=== PATIENT | male | born 1950 | race Caucasian/White ===

== ENCOUNTER 2017-08-26 12:15 | Day surgery (SDC) | payer OTHER, MEDICARE ==
--- NOTE | 2017-08-26 13:01 | PDGENHP ---
History & Physical Chief Complaint: screening History of Present Illness: 67 year old male presents for screening colonoscopy. Pertinent Past, Social, Family History: SoHx: + alc. From [place]. PMHx: OSMAR, HTN. FaMHx: No CRC Relevant Physical Exam: HEENT: anicteric. CV: RRR +s1s2. Lungs: CTAB. Abd: soft, nt, + bs Cardiorespiratory Assessment: ASA 3
[2017-08-26] MEDS ORDERED: LIDOCAINE 1% 2 ML INJ ONE (13:02)
[2017-08-26] MEDS ORDERED: LR 1,000 ML IV ONE (13:03)
--- NOTE | 2017-08-26 13:07 | PDANEPAE ---
ANE History of Present Illness 67 yo for colonoscopy ANE Past Medical History - Cardiovascular History Hx Hypertension: Yes Hx Coronary Artery / Peripheral Vascular Disease: Yes - Pulmonary History Hx Sleep Apnea: Yes ANE Review of Systems Review of Systems: - Exercise capacity METS (RN): 3 METS ANE Patient History - Allergies Allergies/Adverse Reactions: No Known Allergies Allergy (Unverified 08/26/17 12:42) - Home Medications Home medications: home medication list seen and reviewed Home Medications: Atenolol 25 mg 08/26/17 [Last Taken 08/25/17] Atorvastatin Calcium 40 mg 08/26/17 [Last Taken 08/25/17] Lisinopril 10 mg 08/26/17 [Last Taken 08/25/17] - NPO status NPO Status: no food or drink >8 hours NPO Since - Liquids (Date): 08/26/17 NPO Since - Liquids (Time): 05:30 NPO Since - Solids (Date): 08/25/17 NPO Since - Solids (Time): 09:00 - Anes Hx Anes Hx: no prior problems ANE Labs/Vital Signs - Vital Signs Blood Pressure: 154/85 Heart Rate: 48 Respiratory Rate: 14 O2 Sat (%): 95 Height: 5 ft 7 in Weight: 102.965 kg ANE Physical Exam - Airway Neck exam: FROM Mallampati Score: Class 2 ANE Anesthesia Plan Anesthesia Plan: MAC
[2017-08-26] MEDS ORDERED: PROPOFOL/EMULSION 500 MG/50 ML BOTTLE IV ONE (13:08)
[2017-08-26] MEDS ORDERED: LIDOCAINE 1% 2 ML INJ ID PRN (13:18)
[2017-08-26] MEDS ORDERED: NALOXONE HCL 0.4 MG/ML INJ IVP PRN (13:20)
[2017-08-26] MEDS ORDERED: fentaNYL 100 MCG/2 ML INJ IVP PRN (13:20)
--- NOTE | 2017-08-26 13:42 | GIREPORT ---
[facility] - Endoscopy Department Patient Name: Dereck Vee Procedure Date: 08/26/2017 12:51 PM Patient Type: Outpatient Attending MD/ ER Physician: Los Hernandes MD Procedure: Colonoscopy Indications: Screening for colorectal malignant neoplasm Patient Profile: 67 year old male presents for screening colonoscopy. Providers: Los eHrnandes MD Medicines: Monitored Anesthesia Care Complications: No immediate complications. Estimated blood loss: Minimal. Description of Procedure: After obtaining informed consent, the scope was passed under direct vis ion. Throughout the procedure, the patient's blood pressure, pulse, and oxyg en saturations were monitored continuously. The Colonoscope with irrigatio n channel was introduced through the anus and advanced to the cecum, identified by appendiceal orifice and ileocecal valve. The colonoscopy was performed without difficulty. The patient tolerated the procedure well. The quality of the bowel preparation was good. The ileocecal valve, appendi ceal orifice, and rectum were photographed. Findings: The perianal exam findings include non-thrombosed internal hemorrhoids. Many diverticula were found in the sigmoid colon and descending colon. A 5 mm polyp was found in the cecum. The polyp was sessile. The polyp w as removed with a cold snare. Resection and retrieval were complete. Estimated Blood Loss: Estimated blood loss was minimal. Post Op Diagnosis: - Non-thrombosed internal hemorrhoids found on perianal exam. - Diverticulosis in the sigmoid colon and in the descending colon. - One 5 mm polyp in the cecum, removed with a cold snare. Resected and retrieved. Recommendation: - Discharge patient to home (with escort). - Resume previous diet. - Continue present medications. - Repeat colonoscopy in 5 years for surveillance. - Await pathology results. -Thank you for allowing me to participate in the care of your patient. Attending Participation: I personally performed the entire procedure. Los Hernandes MD Los Hernandes MD 08/26/2017 1:42:08 PM This report has been signed electronicallyLos Hernandes MD Number of Addenda: 0 Note Initiated On: 08/26/2017 12:51 PM Total Procedure Duration Time 0 hours 21 minutes 48 seconds [email or web address]
--- NOTE | 2017-08-26 13:49 | POSTANESTH ---
Post Anesthetic Evaluation Cardiovascular Status: Normal, Stable Respiratory Status: Normal, Stable Level of Consciousness/Mental Status: Can Participate in Eval Pain Control: Adequate, Prn Tx Ordered Nausea/Vomiting Control: Adequate, Prn Tx Ordered Complications Possibly Related to Anesthesia: None Noted
[2017-08-26 14:43] VITALS: BP 152/68; RESP 18; TEMP 208.9
[2017-08-26 14:45] VITALS: PULSE 56; O2SAT 97
== END 2017-08-26 14:53 | disposition home or self-care (01) ==
LOC: FSGY 12:15
PROVIDERS: ATTEND Internal Medicine Gastroenterology
DX: Z12.11 Encounter for screening for malignant neoplasm of colon (principal); D12.0 Benign neoplasm of cecum; K57.30 Diverticulosis of large intestine without perforation or abscess without bleeding; G47.33 Obstructive sleep apnea (adult) (pediatric); I10 Essential (primary) hypertension
CPT/HCPCS: J2704

== ENCOUNTER → 2017-09-16 | Outpatient (CLI) | payer OTHER, MEDICARE ==
[~2017-09-16] MED LIST: IOPAMIDOL (ISOVUE-300) 100 ML BTL ONE
== END ==
LOC: CIMAGING 09:03
PROVIDERS: ATTEND Specialist
DX: N20.0 Calculus of kidney (principal); K76.9 Liver disease, unspecified; R91.1 Solitary pulmonary nodule; N32.89 Other specified disorders of bladder; K57.90 Diverticulosis of intestine, part unspecified, without perforation or abscess without bleeding; Z87.442 Personal history of urinary calculi
CPT/HCPCS: 74178; Q9967

== ENCOUNTER → 2017-09-26 | Outpatient (CLI) | payer OTHER, MEDICARE ==
[~2017-09-26] MED LIST changes: +GADOBUTROL 10 ML VIAL IVP ONE; -IOPAMIDOL (ISOVUE-300) 100 ML BTL ONE
== END ==
LOC: FIMAGING 06:52
PROVIDERS: ATTEND Specialist
DX: D18.03 Hemangioma of intra-abdominal structures (principal); D35.00 Benign neoplasm of unspecified adrenal gland
CPT/HCPCS: 74183; A9585

== ENCOUNTER 2017-11-28 06:55 | Observation (INO) | payer OTHER, MEDICARE ==
--- NOTE | 2017-11-28 06:54 | PDHPUP ---
History & Physical Update H&P update statement: This history and physical update is based on an assessment of the patient which was completed after admission or registration (within 24 hours), but prior to the surgery/procedure. H&P update: H&P reviewed & patient examined, no change in patient's condition since H&P completed
[~2017-11-28 06:55] MED LIST changes: -GADOBUTROL 10 ML VIAL IVP ONE; +ceFAZolin 2 GM/SWFI 2 GM/20 ML SYR IVP ONE
[2017-11-28] MEDS ORDERED: LIDOCAINE 2% JELLY 20 ML (UROJECT) ONE (07:10)
--- NOTE | 2017-11-28 07:18 | GHP ---
[f rep st] PREOP HISTORY AND PHYSICAL ADMISSION DIAGNOSIS: Benign prostatic hypertrophy with urinary obstruction. HISTORY OF PRESENT ILLNESS: This is a 67-year-old gentleman who was referred by Dr. Pete because of symptomatic BPH. He has had an AUA score total of 17, quality of life of 3, and he had CAT scan that showed BPH, bladder wall thickening, diverticulosis without itis, and cystoscopy had noted prostatomegaly with obstruction. Urodynamics confirmed this finding. He is admitted for TURP. Options of treatment have been discussed. Written and verbal consent were obtained. PAST MEDICAL HISTORY: Atherosclerotic vascular disease, hepatic hemangioma, heart disease, hypercholesterolemia, and lower urinary tract symptoms. PAST SURGICAL HISTORY: Back, cystoscopy, knee surgery, and urodynamics. MEDICATIONS: Aspirin, atenolol, atorvastatin. ALLERGIES: None. FAMILY HISTORY: Heart disease, hypertension, liver cancer. SOCIAL HISTORY: Alcohol: Moderate consumption. Tobacco: Never. REVIEW OF SYSTEMS: Negative cardiac, respiratory, GI, and endocrine. : Nocturia, frequency, and urinary obstruction. PHYSICAL EXAM: VITAL SIGNS: On admission stable. Blood pressure 129/76. HEAD , EARS, EYES, NOSE, AND THROAT: Normal. CHEST: Clear. HEART: Regular rate and rhythm. ABDOMEN: Normal. No organomegaly, rebound, or guarding. LOWER EXTREMITIES: Normal. PLAN: He is admitted for a TURP. Copy requested to: Dr. Pete /[id number]/MODL MTDD
[2017-11-28] MEDS ORDERED: fentaNYL 100 MCG/2 ML INJ ONE (08:36)
[2017-11-28] MEDS ORDERED: PROPOFOL/EMULSION 500 MG/50 ML BOTTLE IV ONE (08:36)
[2017-11-28] MEDS ORDERED: MIDAZOLAM 2 MG/2 ML VIAL ONE (08:36)
[2017-11-28] MEDS ORDERED: ONDANSETRON 4 MG/2 ML VIAL ONE (09:15)
[2017-11-28] MEDS ORDERED: LIDOCAINE 2% 5 ML SDV ONE (09:15)
[2017-11-28] MEDS ORDERED: RANITIDINE 50 MG/2 ML VIAL ONE (09:15)
[2017-11-28] MEDS ORDERED: METOCLOPRAMIDE 10 MG/2 ML VIAL ONE (09:15)
[2017-11-28] MEDS ORDERED: DEXAMETHASONE 4 MG/ML VIAL ONE (09:15)
[2017-11-28] MEDS ORDERED: KETOROLAC 30 MG/1 ML SDV ONE (09:15)
[2017-11-28] MEDS ORDERED: OPIUM/BELLADONNA ALKALO SUPP PR PRN (10:36)
--- NOTE | 2017-11-28 10:36 | POSTOPPROG ---
Post Op Note Date of Operation: 11/28/17 Surgeon: Buddy Harp Anesthesiologist: Herb Anesthesia: GET(General Endotracheal), LMA Pre-op Diagnosis: bph Procedure: turp Inf/Abcess present in the surg proc area at time of surgery?: No EBL: 50-100 Drains: Other (kaur) Specimen(s): prostate sent, dictated
[2017-11-28] MEDS ORDERED: morphINE PCA 30 MG/30 ML PCA IV PRN (10:38)
[2017-11-28] MEDS ORDERED: NALOXONE HCL 0.4 MG/ML INJ IVP PRN ×2 (10:38→11:03)
[2017-11-28] MEDS ORDERED: D5W LR 1,000 ML IV SCH (10:45)
[2017-11-28] MEDS ORDERED: LR 500 ML IV PRN (11:03)
[2017-11-28] MEDS ORDERED: METOCLOPRAMIDE 10 MG/2 ML VIAL IVP PRN (11:03)
[2017-11-28] MEDS ORDERED: ONDANSETRON 4 MG/2 ML VIAL IVP PRN (11:03)
[2017-11-28] MEDS ORDERED: fentaNYL 100 MCG/2 ML INJ IVP PRN (11:03)
--- NOTE | 2017-11-28 11:03 | PDANEPAE ---
ANE Past Medical History - Cardiovascular History Hx Hypertension: Yes Hx Arrhythmias: No Hx Chest Pain: No Hx Coronary Artery / Peripheral Vascular Disease: Yes Hx CHF / Valvular Disease: No Hx Palpitations: No Cardiovascular History Comment: HYPERLIPIDEMIA - Pulmonary History Hx COPD: No Hx Asthma/Reactive Airway Disease: No Hx Recent Upper Respiratory Infection: No Hx Oxygen in Use at Home: No Hx Sleep Apnea: Yes Sleep Apnea Screening Result - Last Documented: Positive - Neurologic History Hx Cerebrovascular Accident: No Hx Seizures: No Hx Dementia: No - Endocrine History Hx Diabetes: No Endocrine History Comment: PRE DIAB - Renal History Hx Renal Disorders: No Renal History Comment: KIDNEY STONES IN PAST - Liver History Hx Hepatic Disorders: No - Neurological & Psychiatric Hx Hx Neurological and Psychiatric Disorders: No - Cancer History Hx Cancer: No - Congenital Disorder History Hx Congenital Disorders: No - GI History Hx Gastrointestinal Disorders: No - Other Health History Other Health History: NEG - Chronic Pain History Chronic Pain: Yes (KNEE, THIGH, BACK) - Surgical History Prior Surgeries: R TKA. LUMBAR FUSION L4-5. KNEE SCOPES ANE Review of Systems Review of Systems: - Exercise capacity METS (RN): 5 METS ANE Patient History - Allergies Allergies/Adverse Reactions: No Known Allergies Allergy (Unverified 08/26/17 12:42) - Home Medications Home Medications: Atenolol [Tenormin 25 mg (*)] 25 mg PO DAILY #0 08/26/17 [Last Taken 11/27/17] Atorvastatin Calcium [Lipitor 40 mg (*)] 40 mg PO DAILY #0 08/26/17 [Last Taken 11/27/17] Lisinopril [Zestril 10 mg (*)] 10 mg PO DAILY #0 08/26/17 [Last Taken 11/27/17] Aspirin [Aspirin 325 mg (*)] 325 mg PO DAILY 11/06/17 [Last Taken 11/22/17] Cholecalciferol Vit D3 [Vitamin D3 (*)] 1,000 units PO DAILY 11/06/17 [Last Taken 11/22/17] Glucosamine/Chondroitin [Glucosamine/Chondroitin (*)] 1 each PO DAILY 11/06/17 [ Last Taken 11/22/17] Herbals/Supplements -Info Only 1 ea PO DAILY 11/06/17 [Last Taken 11/22/17] [place]-3 Fatty Acids [Fish Oil 1000 mg (*)] 1,000 mg PO DAILY 11/06/17 [Last Taken 11/22/17] - NPO status NPO Since - Liquids (Date): 11/27/17 NPO Since - Liquids (Time): 19:00 NPO Since - Solids (Date): 11/27/17 NPO Since - Solids (Time): 19:00 - Smoking Hx Smoking Status: Never smoked - Family Anes Hx Family Hx Anesthesia Complications: NEG ANE Labs/Vital Signs - Vital Signs Blood Pressure: 160/83 Heart Rate: 56 Respiratory Rate: 16 O2 Sat (%): 94 Height: 168.91 cm Weight: 102.965 kg ANE Physical Exam - Airway Neck exam: FROM, short neck Mallampati Score: Class 2 Mouth exam: normal dental/mouth exam, poor dentition - Pulmonary Pulmonary: no respiratory distress, no rales or rhonchi, clear to auscultation - Cardiovascular Cardiovascular: regular rate and rhythym, no murmur, rub, or gallop - ASA Status ASA Status: III ANE Anesthesia Plan Anesthesia Plan: GA w LMA
--- NOTE | 2017-11-28 11:04 | POSTANESTH ---
Post Anesthetic Evaluation Cardiovascular Status: Normal, Stable, Similar to Pre-Op Cond Respiratory Status: Normal, Stable, Similar to Pre-op Cond. Level of Consciousness/Mental Status: Can Participate in Eval Pain Control: Adequate, Prn Tx Ordered Nausea/Vomiting Control: Adequate, Prn Tx Ordered Complications Possibly Related to Anesthesia: None Noted
[2017-11-28] MEDS ORDERED: OPIUM/BELLADONNA ALKALO SUPP PR ONE (11:48)
--- NOTE | 2017-11-28 14:15 | GOP ---
[f rep st] OPERATIVE REPORT DATE OF OPERATION: 11/28/2017 SURGEON: Buddy Harp MD ANESTHESIA: General anesthesia. ANESTHESIOLOGIST: Romy Estevez MD. PREOPERATIVE DIAGNOSIS: Benign prostatic hypertrophy with urinary obstruction. POSTOPERATIVE DIAGNOSIS: Benign prostatic hypertrophy with urinary obstruction. PROCEDURE PERFORMED: Transurethral resection of the prostate, bipolar. FINDINGS: BPH with obst SPECIMENS: Sent to pathology. ESTIMATED BLOOD LOSS: Less than 100. DESCRIPTION OF PROCEDURE: After undergoing appropriate anesthesia, being prepped and draped in normal sterile fashion in the dorsal lithotomy position, he had meatal stenosis that was dilated to a 22-Lao. I was able to pass the resectoscope under direct vision of the bladder. He had an intravesical lobe of the prostate, lateral lobar hypertrophy. The TUR was begun with the bipolar , taking down the intravesical lobe and the right lateral lobe and right portion of the posterior lobe, left lateral lobe, and left portion of the posterior lobe resected. Bladder was Ellik'd free of all chips and clots. Visualization revealed no residual chips or clots. Ureteral orifices preserved. External sphincter approximated at the midline symmetrically. Uro- Jet placed in the urethra. A 22 three-way catheter passed in the bladder with a 90 cc balloon inflated, traction placed, and irrigated clear. He will be admitted for postoperative care. /[id number]/MODL MTDD
[2017-11-28] MEDS: HYDROCODONE/APAP 5/325 TAB PO PRN (22:42)
[2017-11-29] MEDS: HYDROCODONE/APAP 5/325 TAB PO PRN (02:06)
--- NOTE | 2017-11-29 08:09 | SOAPPROG ---
SOAP Progress Note Assessment/Plan: Assessment: BPH loc w urin obs/LUTS Acute POD # 1, doing well, remove kaur and if pt voids DC Plan: DC kaur and home if pt voids 11/29/17 16:00 Subjective: doing well Objective: Vital Signs Temp Pulse Resp BP Pulse Ox 36.6 C 54 L 16 150/72 H 95 11/29/17 04:00 11/29/17 04:00 11/29/17 04:00 11/29/17 04:00 11/29/17 04:00 11/28/17 11/29/17 11/30/17 05:59 05:59 05:59 Intake Total 3348 Output Total 4050 Balance -702 Physical Exam - Physical Exam General Appearance: WD/WN Neck: supple Respiratory: No respiratory distress Cardiac/Chest: regular rate, rhythm Abdomen: soft Back: No CVA tenderness Extremities: other (left arm swelling from IV and band) ICD10 Worksheet Patient Problems: Problems Problem Status Onset BPH loc w urin obs/LUTS Acute
[2017-11-29] MEDS ORDERED: ATORVASTATIN CALCIUM 40 MG PO SCH (09:00)
[2017-11-29] MEDS ORDERED: CHONDROITIN PO SCH (09:00)
[2017-11-29] MEDS ORDERED: ASPIRIN 325 MG TAB PO SCH (09:00)
[2017-11-29] MEDS ORDERED: GLUCOSAMINE PO SCH (09:00)
[2017-11-29] MEDS ORDERED: GLUCOSAMINE/CHONDROITIN CAP PO SCH (09:00)
[2017-11-29] MEDS ORDERED: NON-FORMULARY NEW DRUG (Lisinopril [Zestril 10 Mg (*)] 10 MG) PO SCH (09:00)
[2017-11-29] MEDS ORDERED: ASPIRIN 325 MG PO SCH (09:00)
[2017-11-29] MEDS ORDERED: OMEGA-3 FATTY ACIDS 1,000 MG CAP PO SCH (09:00)
[2017-11-29] MEDS ORDERED: NON-FORMULARY NEW DRUG (Cholecalciferol Vit D3 [Vitamin D3 (*)] 1,000 UNITS) PO SCH (09:00)
[2017-11-29] MEDS ORDERED: LISINOPRIL 10 MG TAB PO SCH (09:00)
[2017-11-29] MEDS ORDERED: NON-FORMULARY NEW DRUG (Omega-3 Fatty Acids [Fish Oil 1000 Mg (*)] 1,000 MG) PO SCH (09:00)
[2017-11-29] MEDS ORDERED: ATENOLOL 25 MG PO SCH (09:00)
[2017-11-29] MEDS ORDERED: ATENOLOL 25 MG TAB PO SCH (09:00)
[2017-11-29] MEDS ORDERED: ATORVASTATIN CALCIUM 40 MG TAB PO SCH (09:00)
[2017-11-29] MEDS ORDERED: CHOLECALCIFEROL VIT D3 1,000 UNITS TAB PO SCH (09:00)
[2017-11-29 15:27] VITALS: BP 157/69
--- NOTE | 2017-11-29 16:07 | ASMTCMCOM ---
CM Note CM Note Notes: Spoke w/RN, anticipate pt will dc home w/support of when medically stable. CM available for any changes. DC Plan: Independent Date Signed: 11/29/2017 04:06 PM Electronically Signed By:Yaquelin Kowalski RN
== END 2017-11-29 18:12 | disposition home or self-care (01) ==
LOC: F1N 06:55 → F3E 12:45
PROVIDERS: ADMIT Specialist; ATTEND Specialist
PROC: 0VB08ZZ Excision of Prostate, Via Natural or Artificial Opening Endoscopic (ICD-10-PCS; principal; 2017-11-28 08:30)
DX: N40.1 Benign prostatic hyperplasia with lower urinary tract symptoms (principal); N13.8 Other obstructive and reflux uropathy; I25.10 Atherosclerotic heart disease of native coronary artery without angina pectoris; E78.00 Pure hypercholesterolemia, unspecified
CPT/HCPCS: 52601; 88305; 93971; J0690; J1100; J1885; J2250; J2405; J2704; J2765; J2780; J3010

== ENCOUNTER 2018-11-19 07:48 | Inpatient (IN) | payer OTHER, MEDICARE ==
[~2018-11-19 07:48] MED LIST changes: +ACETAMINOPHEN 325 MG TAB PO PRN; +ALPRAZolam 0.5 MG TAB PO PRN; -ceFAZolin 2 GM/SWFI 2 GM/20 ML SYR IVP ONE; +tiZANidine HCL 2 MG TAB PO PRN
[2018-11-19] MEDS ORDERED: ceFAZolin 2 GM/DEXTROSE 100 ML IV ONE (08:51)
[2018-11-19] MEDS ORDERED: LR 1,000 ML IV ONE (08:51)
[2018-11-19] MEDS ORDERED: GABAPENTIN 300 MG CAP PO ONE (08:51)
[2018-11-19] MEDS ORDERED: ACETAMINOPHEN 500 MG TAB PO ONE (08:51)
[2018-11-19] MEDS ORDERED: CHLORHEXIDINE GLUC HIBICLENS 118 ML BTL TP ONE (09:30)
[2018-11-19] MEDS ORDERED: BUPIVACAINE/EPI 0.25% 30 ML SDV ONE (09:31)
[2018-11-19] MEDS ORDERED: THROMBIN (BOVINE) 5,000 UNIT VIAL TP ONE (09:31)
[2018-11-19] MEDS ORDERED: BACITRACIN 50,000 UNITS/10 ML SYR IRR ONE ×2 (09:32→15:40)
[2018-11-19] MEDS ORDERED: HYDROmorphONE/DILAUDID 6 MG/30 ML PCA IV PRN (10:14)
[2018-11-19] MEDS ORDERED: ONDANSETRON DISINTEGRATING 4 MG TAB PO PRN (10:14)
[2018-11-19] MEDS ORDERED: ONDANSETRON 4 MG/2 ML VIAL IVP PRN (10:14)
[2018-11-19] MEDS ORDERED: MAGNESIUM HYDROXIDE 30 ML UDCUP PO PRN (10:14)
[2018-11-19] MEDS ORDERED: NALOXONE HCL 0.4 MG/ML INJ IVP PRN ×2 (10:14→16:09)
[2018-11-19] MEDS ORDERED: HYDROmorphONE/DILAUDID 1 MG/ML INJ IVP PRN (10:14)
[2018-11-19] MEDS ORDERED: diphenhydrAMINE 25 MG CAP PO PRN (10:14)
[2018-11-19] MEDS ORDERED: NS 1,000 ML IV SCH (10:15)
[2018-11-19] MEDS ORDERED: MIDAZOLAM 2 MG/2 ML VIAL IVP ONE (10:30)
--- NOTE | 2018-11-19 10:30 | PDANEPAE ---
ANE History of Present Illness lubar stenosis and radiculopathy, here for two level TLIF ANE Past Medical History - Cardiovascular History Hx Hypertension: Yes Hx Arrhythmias: No Hx Chest Pain: No Hx Coronary Artery / Peripheral Vascular Disease: Yes Hx CHF / Valvular Disease: No Hx Palpitations: No Cardiovascular History Comment: HYPERLIPIDEMIA. EF PRESERVED 50%. RECENT STRESS W/O ISCHEMIA. KNOWN RCA DISEASE THAT IS STABLE AND MEDICALLY OPTIMIZED - Pulmonary History Hx COPD: No Hx Asthma/Reactive Airway Disease: No Hx Recent Upper Respiratory Infection: No Hx Oxygen in Use at Home: No Hx Sleep Apnea: Yes Sleep Apnea Screening Result - Last Documented: Positive - Neurologic History Hx Cerebrovascular Accident: No Hx Seizures: No Hx Dementia: No - Endocrine History Hx Diabetes: No Endocrine History Comment: PRE DIAB - Renal History Hx Renal Disorders: No Renal History Comment: KIDNEY STONES IN PAST - Liver History Hx Hepatic Disorders: No - Neurological & Psychiatric Hx Hx Neurological and Psychiatric Disorders: No - Cancer History Hx Cancer: No - Congenital Disorder History Hx Congenital Disorders: No - GI History Hx Gastrointestinal Disorders: No - Other Health History Other Health History: none - Chronic Pain History Chronic Pain: Yes - Surgical History Prior Surgeries: R TKA. LUMBAR FUSION L4-5. KNEE SCOPES. turp 2018 ANE Review of Systems Review of Systems: - Exercise capacity METS (RN): 4 METS ANE Patient History - Allergies Allergies/Adverse Reactions: No Known Allergies Allergy (Verified 11/19/18 09:51) - Home Medications Home Medications: Atenolol [Tenormin 25 mg (*)] 25 mg PO DAILY #0 08/26/17 [Last Taken 11/18/18] Atorvastatin Calcium [Lipitor 40 mg (*)] 40 mg PO DAILY #0 08/26/17 [Last Taken 11/18/18] Lisinopril [Zestril 10 mg (*)] 10 mg PO DAILY #0 08/26/17 [Last Taken 11/18/18] Aspirin [Aspirin 325 mg (*)] 325 mg PO DAILY 11/06/17 [Last Taken 11/12/18] Cholecalciferol Vit D3 [Vitamin D3 (*)] 5,000 units PO DAILY 11/06/17 [Last Taken 11/12/18] Herbals/Supplements -Info Only 1 ea PO DAILY 11/06/17 [Last Taken 11/12/18] amLODIPine BESYLATE [Norvasc 10 mg (*)] 10 mg PO DAILY 10/01/18 [Last Taken 09/06] ALPRAZolam [Xanax 0.5 MG (*)] 0.5 mg PO HS PRN 10/30/18 [Last Taken 11/05/18] Acetaminophen [Tylenol 325mg (*)] 325 mg PO Q6 PRN 10/30/18 [Last Taken 11/18/18 ] tiZANidine HCL [Zanaflex 2MG (*)] 4 mg PO TID PRN 10/30/18 [Last Taken 11/12/18] - NPO status NPO Since - Liquids (Date): 11/18/18 NPO Since - Liquids (Time): 22:00 NPO Since - Solids (Date): 11/18/18 NPO Since - Solids (Time): 21:00 - Smoking Hx Smoking Status: Never smoked - Family Anes Hx Family Hx Anesthesia Complications: none ANE Labs/Vital Signs - Vital Signs Blood Pressure: 132/73 Heart Rate: 57 Respiratory Rate: 16 O2 Sat (%): 95 Height: 168.91 cm Weight: 102.965 kg ANE Physical Exam - Airway Neck exam: FROM, increased neck circumference Mallampati Score: Class 4 Mouth exam: normal dental/mouth exam - Pulmonary Pulmonary: no respiratory distress, no rales or rhonchi - Cardiovascular Cardiovascular: regular rate and rhythym, no murmur, rub, or gallop - ASA Status ASA Status: III ANE Anesthesia Plan Anesthesia Plan: general endotracheal anesthesia Total IV Anesthesia: Yes
[2018-11-19] MEDS ORDERED: MIDAZOLAM 2 MG/2 ML VIAL ONE (10:33)
[2018-11-19] MEDS ORDERED: PROPOFOL 200 MG/20 ML VIAL ONE (10:44)
[2018-11-19] MEDS ORDERED: PROPOFOL/EMULSION 500 MG/50 ML BOTTLE IV ONE ×6 (10:44→15:15)
[2018-11-19] MEDS ORDERED: REMIFENTANIL HCL 1 MG VIAL ONE ×3 (10:44→11:20)
[2018-11-19] MEDS ORDERED: LIDOCAINE 2% 100 MG/5 ML SYR ONE (10:44)
[2018-11-19] MEDS ORDERED: ONDANSETRON 4 MG/2 ML VIAL ONE (16:05)
[2018-11-19] MEDS ORDERED: DEXAMETHASONE 4 MG/ML VIAL ONE (16:05)
[2018-11-19] MEDS ORDERED: HYDROmorphONE/DILAUDID 2 MG/ML INJ ONE (16:06)
[2018-11-19] MEDS ORDERED: fentaNYL 100 MCG/2 ML INJ IVP PRN (16:09)
[2018-11-19] MEDS ORDERED: DIAZEPAM 5 MG/ML 1 ML SYR IVP PRN (16:09)
[2018-11-19] MEDS ORDERED: PROMETHAZINE HCL 25 MG/ML INJ IVP PRN (16:09)
[2018-11-19] MEDS ORDERED: MEPERIDINE 25 MG/0.5 ML AMP IVP PRN (16:09)
[2018-11-19] MEDS ORDERED: LR 500 ML IV PRN (16:09)
--- NOTE | 2018-11-19 16:10 | PDMN ---
Medical Necessity Medical necessity: [facility] IP only surgery; cpt 21033 TLIF
--- NOTE | 2018-11-19 16:23 | POSTOPPROG ---
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
--- NOTE | 2018-11-19 16:29 | SOAPPROG ---
SOAP Progress Note Assessment/Plan: Post Op Visit S: Awake and alert. NAD. Pt with expected lower back pain O: AFVSS/PERRLA/EOMI no droop CN 2-12 grossly intact +lt touch 5/5 BUE/BLE = CDI CJ in place A/P: 68 yo male that is s/p removal of hardware at L4/5 with new TLIF L2/3 and L3/4, PSF L2-L5 -orders in place -PT/OT in am -brace when out of bed -no bending or twisting -call with any questions or concerns -pt seen by Dr Mcdowell as well Objective: Vital Signs Temp Pulse Resp BP Pulse Ox 37.1 C 57 L 16 132/73 H 95 11/19/18 09:56 11/19/18 10:30 11/19/18 10:30 11/19/18 10:30 11/19/18 10:30 ICD10 Worksheet Patient Problems: Problems Problem Status Onset Arthrodesis status Acute Lumbar radicular pain Acute Lumbar stenosis Acute BPH loc w urin obs/LUTS Acute - ICD10 Problem Qualifiers (1) Lumbar stenosis (2) Lumbar radicular pain (3) Arthrodesis status
--- NOTE | 2018-11-19 16:47 | POSTANESTH ---
Post Anesthetic Evaluation Cardiovascular Status: Normal, Stable Respiratory Status: Normal, Stable Level of Consciousness/Mental Status: Can Participate in Eval, Mildly Sleepy, Arousable Pain Control: Adequate, Prn Tx Ordered Nausea/Vomiting Control: Adequate, Prn Tx Ordered Complications Possibly Related to Anesthesia: None Noted
--- NOTE | 2018-11-19 17:03 | GOP ---
[f rep st] OPERATIVE REPORT DATE OF OPERATION: 11/19/2018 SURGEON: Scot Mcdowell MD NEUROSURGEON: Tonio Mcdowell MD. WILLOW MACHINE OPERATOR: Polo Meraz PA-C. PREOPERATIVE DIAGNOSIS: Adjacent segment disease, severe stenosis and bilateral lumbosacral radiculo daniela due to stenosis at L2-3, L3-4 above a prior L4-5 fusion. POSTOPERATIVE DIAGNOSIS: Adjacent segment disease, severe stenosis and bilateral lumbosacral radicul opathy due to stenosis at L2-3, L3-4 above a prior L4-5 fusion. PROCEDURE PERFORMED: Removal of posterior nonsegmental hardware at L4-5, posterolateral and interver tebral arthrodesis at L2-3, L3-4 (95040, 65029); posterior segmental instrumentation L2, L3, L4 and L 5 (20730); placement of biomechanical intervertebral device L2-3, L3-4 (71207 x2); same-incision bone graft harvest; microscope; spinal stereotaxis FINDINGS: ESTIMATED BLOOD LOSS: 300 mL. INDICATIONS: The patient is a middle-aged gentleman who had a prior history of a successful L4-5 fus ion done by an outside surgeon, who developed severe and recalcitrant bilateral lumbosacral radiculop athy that was making him miserable due to adjacent segment disease, severe disk degenerative disease at L2-3, L3-4 with severe stenosis. There was very severe right foraminal stenosis at L2-3, L3-4, bu t there is also spinal stenosis. There is moderate to moderately severe left foraminal stenosis. I suggested a 2-level adjacent segment fusion and TLIF. Another surgeon had suggested a DLIF to him, w chaloh was a reasonable surgical recommendation. Both of us suggested the same surgical segments, that being the L2-3 and L3-4 levels. The risk of nerve injury, spinal fluid leak, adjacent segment disea se, future spine surgery, failure to improve, possible worsening of symptoms, pseudoarthrosis and the possible need for revision surgery, as well as the risk of screw and hardware malposition and malfun ction were discussed. He accepted that these were the risks of the surgery and he did want us to pro ceed. DESCRIPTION OF PROCEDURE: The patient was taken to the operating room and placed in supine position. General anesthesia was begun. He was flipped prone onto the Felipe table. Care was taken to pad all points of contact. His back was sterilely prepped and draped by the surgeon. A localizing x-ray was taken. The prior incision was opened. We actually did not need to extend the incision more torsten n about 1 cm rostrally. The subcutaneous tissue was dissected using a plasma blade down to the fasci a and a subperiosteal dissection was made down the inferior L1 lamina. The L2-L3 lamina was exposed. The L4-5 posterolateral hardware was exposed. It was indeed TSRH hardware. We removed the cap scr ews holding the rods in place. We removed the rods on each side followed by the clementina clamps and then we followed this by removal of each of the 4 pegs. Unfortunately, we did not have a 3.2 mm screwdriv er. We had a 3 and a 3.5 mm. One was ultimately located, but was not sterile and was being flashed, and we used the reverse thread tools to remove each of the 4 posts. The 4 posts were removed. Gelf oam bullets were placed in the holes that remained. It did take considerable time to remove the hard huitron. We then decorticated all the remaining posterolateral bone bilaterally from L2 all the way dione n to L5. We denuded the L2-3, L3-4 facet joints that were going to be fused. We preserved the L1-2 facet joint. We attached the Stealth reference frame to the spinous process and we brought in the O- arm. The O-arm had not been draped sterilely for this surgery, as there were no drapes available for the O-arm. We used the other technique of covering the patient. An O-arm spin was made and using f rameless still stereotaxy, we placed pedicle screws bilaterally at L2, L3, L4 and L5. The O-arm had been removed, naturally, for this part of the procedure. The screws all had good bony purchase. We brought the O-arm and again after sterilely draping the patient. We performed an O-arm spin and all the screws were in excellent position. They all stimulated at 20 milliamps or greater. We took a ro d down and placed over the screws to the right and distracted on the right only, reducing the degener ative scoliosis at the L2-3, L3-4 level. Got a really nice reduction of the scoliosis or the degener ative tilt at the L2-3, L3-4 levels and I was happy with this and we locked the rods down in place. We then put a clementina on the left-hand side and did not distract on the left. We then carefully removed all the soft tissue of the bone at L2-3, L3-4 and then harvested the inferior L2 spinous process, the complete L3 spinous process and the rostral L4 spinous process for autologous grafting purposes. Un trev the microscope, we drilled bilateral laminectomies at L2-3, L3-4. We performed complete right-si ded facetectomies at L2-3, L3-4, removing the superior articular process of L3 and the superior artic ular process of L4 to get great foraminal decompressions on the right-hand side. There was very mary re stenosis and it actually took considerable time to perform bilateral decompressions at the L2-3, L 3-4 levels. We did decompress both sides. We preserved the facet joints on the left for posterolate ral bony fusion surface, but we did undercut the facets and perform medial facetectomies and got grea t decompressions. We then went to the right-hand side and pulled the L3 traversing nerve root medial ly at the L2-3 level. We removed the L2-3 disk in its entirety and roughened the subchondral bone to create arthrodesis at that level. We then did likewise at L3-4, pulling the L4 nerve root medially, incising the disk and removing the disk and the cartilaginous endplates completely, roughening the s ubchondral bone to create arthrodesis. We then sized each space and chose 7 x 28 mm devices and got a very nice fit. We then loaded these devices on the sweeping compound blender and placed BMP and bone autograft into the disk space followed by the devices. We checked the position of the devices. Both AP and latera l images were taken and we expanded them under fluoroscopic guidance and I was happy with the positio n of both devices. We then decorticated all remaining bone, posterolaterally and bilaterally at L2-3 , L3-4. We had irrigated, throughout the surgery, large amounts of antibiotic saline, placed a subfa scial drain and placed bone autograft and BMP posterolaterally bilaterally. We then closed the incis ion in multiple layers using Vicryl sutures. Steri-Strips were applied to the skin. The patient was reversed from anesthesia, extubated and transferred to the recovery room in stable condition. There were no complications. COMPLICATIONS: None. INSTRUMENTATION USED: [employer] 3D instrumentation. This was given back to the patient's . Hardware placed was [employer] Solara 5.5 mm system with a titanium clementina. We used a small bone morph ogenic protein and two 7 x 28 mm Elevate cages. We used a 90 mm clementina on the left and 100 mm clementina on th e right. /[id number]/MODL
[2018-11-19] MEDS ORDERED: fentaNYL 100 MCG/2 ML INJ ONE (17:06)
[2018-11-19] MEDS: oxyCODONE IR 5 MG TAB PO PRN ×2 (17:31→22:23)
[2018-11-19] MEDS ORDERED: oxyCODONE IR 5 MG TAB ONE (17:31)
[2018-11-19] MEDS: ATORVASTATIN CALCIUM 40 MG TAB PO SCH (18:15)
[2018-11-19] MEDS: ATENOLOL 25 MG TAB PO SCH (18:15)
[2018-11-19] MEDS: LISINOPRIL 10 MG TAB PO SCH (18:16)
[2018-11-19] MEDS: GABAPENTIN 300 MG CAP PO SCH ×2 (18:25→22:24)
[2018-11-19] MEDS: METHOCARBAMOL 750 MG TAB PO PRN (18:25)
[2018-11-19] MEDS: ceFAZolin 2 GM/DEXTROSE 100 ML IV SCH (18:31)
[2018-11-19] MEDS: SENNOSIDES/DOCUSATE SODIUM TAB PO SCH (22:24)
[2018-11-19] MEDS: FAMOTIDINE 20 MG TAB PO SCH (22:24)
[2018-11-20] MEDS: ceFAZolin 2 GM/DEXTROSE 100 ML IV SCH (03:33)
[2018-11-20] MEDS: oxyCODONE IR 5 MG TAB PO PRN ×5 (03:36→20:00)
[2018-11-20] MEDS: METHOCARBAMOL 750 MG TAB PO PRN ×2 (03:36→16:53)
[2018-11-20] MEDS: GABAPENTIN 300 MG CAP PO SCH ×3 (06:10→21:08)
[2018-11-20 06:33] LABS: PLATELET COUNT 169 10^3/uL (150-400)
--- NOTE | 2018-11-20 07:51 | NEUSURGPN ---
Date of Surgery: 11/19/18 Post Op Day: 1 Assessment/Plan: Assessment: 68 yo male that is s/p removal of hardware at L4/5 with new TLIF L2/ 3 and L3/4, PSF L2-L5 POD#1 Plan: -s/p L spine fusion: Pt with expected lower back pain. Legs feel better -orders in place -PT/OT pending -brace when out of bed-pt has from prior appt with Dr Baires's office -no bending or twisting -labs reviewed -post op xrays pending -call with any questions or concerns -pt seen by Dr Mcdowell as well Subjective: Awake and alert. NAD. Eating/drinking and voiding. No f/c/n/v/d. Objective: AFVSS/PERRLA/EOMI no droop CN 2-12 grossly intact +lt touch 5/5 BUE/BLE = CDI CJ in place Neuro Check Frequency: per routine Urinary Catheter in Place: No - Physician Discussed Patient with DrNadira: Jeremias Patient Seen by : Jeremias Neurosurgery Physical Exam - Vitals, I&O, Labs I and O 11/19/18 11/20/18 11/21/18 05:59 05:59 05:59 Intake Total 2582 450 Output Total 1310 95 Balance 1272 355 Weight 102.965 kg Intake: Oral (ml) 100 450 IV Intake (ml) 2382 IV Infused (ml) 100 ceFAZolin 2 GM/DEXTROSE 100 100 ml @ 200 mls/hr IV Q8H LAMIN Rx#:[id number] Output: Urine (ml) 875 Catheter 875 Estimated Blood Loss (ml) 250 CJ Drain Output (ml) 185 95 #1 Left Felipe Edwards 185 95 Vital Signs Temp Pulse Resp BP Pulse Ox 37.1 C 74 20 124/56 H 93 11/20/18 07:26 11/20/18 07:26 11/20/18 07:26 11/20/18 07:26 11/20/18 07:26 Laboratory Results 11/20/18 06:07 11/20/18 06:07 ICD10 Worksheet Patient Problems: Problems Problem Status Onset Arthrodesis status Acute Lumbar radicular pain Acute Lumbar stenosis Acute BPH loc w urin obs/LUTS Acute - ICD10 Problem Qualifiers (1) Lumbar stenosis (2) Lumbar radicular pain (3) Arthrodesis status
[2018-11-20] MEDS: FAMOTIDINE 20 MG TAB PO SCH ×2 (09:06→20:00)
[2018-11-20] MEDS: LISINOPRIL 10 MG TAB PO SCH (09:06)
[2018-11-20] MEDS: SENNOSIDES/DOCUSATE SODIUM TAB PO SCH ×2 (09:07→20:00)
[2018-11-20] MEDS: ATORVASTATIN CALCIUM 40 MG TAB PO SCH (09:08)
[2018-11-20] MEDS: ATENOLOL 25 MG TAB PO SCH (09:08)
[2018-11-20] MEDS ORDERED: PNEUMOC 13-VAL CONJ-DIP CRM/PF 0.5 ML SYR (PREVNAR 13) IM ONE (13:54)
--- NOTE | 2018-11-20 14:12 | ASMTCMCOM ---
CM Note CM Note Notes: Pt had planned back surgery, resides with spouse. PT rec HHC, OT rec home/HHC Pt was pre-arranged by with [facility]. Pt meets with Yaquelin from [facility] today and decides he does want HC. HC orders not required at d/c since [facility] has protocol with MD. D/c plan of care: Home with [facility] Date Signed: 11/20/2018 02:11 PM Electronically Signed By:MAYNOR Badillo
[2018-11-20] MEDS: LACTULOSE 20 GM/30 ML UDCUP PO PRN (14:39)
[2018-11-21] MEDS: METHOCARBAMOL 750 MG TAB PO PRN ×3 (00:41→16:46)
[2018-11-21] MEDS: oxyCODONE IR 5 MG TAB PO PRN ×5 (00:41→18:06)
[2018-11-21] MEDS: GABAPENTIN 300 MG CAP PO SCH ×3 (05:00→21:25)
[2018-11-21] MEDS: LISINOPRIL 10 MG TAB PO SCH (08:48)
[2018-11-21] MEDS: FAMOTIDINE 20 MG TAB PO SCH ×2 (08:48→21:25)
[2018-11-21] MEDS: SENNOSIDES/DOCUSATE SODIUM TAB PO SCH ×2 (08:48→21:44)
[2018-11-21] MEDS: ATENOLOL 25 MG TAB PO SCH (08:49)
[2018-11-21] MEDS: ATORVASTATIN CALCIUM 40 MG TAB PO SCH (08:49)
--- NOTE | 2018-11-21 08:56 | NEUSURGPN ---
Date of Surgery: 11/19/18 Post Op Day: 2 Assessment/Plan: Assessment: 68 yo male that is s/p removal of hardware at L4/5 with new TLIF L2/ 3 and L3/4, PSF L2-L5 POD#2 Plan: - neuro stable - pain controlled - wear brace when out of bed - PT/OT - postop x-rays with hardware in good placement - continue CJ drain, will plan to remove tomorrow morning - Dispo: plan for home tomorrow Discussed with Dr. Mcdowell. Subjective: Having pain concentrated at the left side of his back, worse with movement. Objective: Awake. Alert. PERRL. EOMI Speech fluent Muscle strength full at 5/5 Sensation intact - Physician Discussed Patient with : Jeremias Neurosurgery Physical Exam - Vitals, I&O, Labs I and O 11/20/18 11/21/18 11/22/18 05:59 05:59 05:59 Intake Total 2582 1100 Output Total 1310 1400 Balance 1272 -300 Weight 102.965 kg Intake: Oral (ml) 100 1100 IV Intake (ml) 2382 IV Infused (ml) 100 ceFAZolin 2 GM/DEXTROSE 100 100 ml @ 200 mls/hr IV Q8H LAMIN Rx#:[id number] Output: Urine (ml) 875 900 Catheter 875 Urinal 900 Estimated Blood Loss (ml) 250 CJ Drain Output (ml) 185 500 #1 Left Felipe Edwards 185 500 Other: Number of Voids Urinal 1 Bladder Scan Volume (ml) Toilet 524 Vital Signs Temp Pulse Resp BP Pulse Ox 37.2 C 63 19 115/66 94 11/21/18 07:26 11/21/18 07:26 11/21/18 07:26 11/21/18 07:26 11/21/18 07:26 Laboratory Results 11/20/18 06:07 11/20/18 06:07 ICD10 Worksheet Patient Problems: Problems Problem Status Onset Arthrodesis status Acute Lumbar radicular pain Acute Lumbar stenosis Acute BPH loc w urin obs/LUTS Acute
[2018-11-21] MEDS: POLYETHYLENE GLYCOL 3350 17 GM PKT PO PRN (09:05)
--- NOTE | 2018-11-21 11:16 | ASMTCMCOM ---
CM Note CM Note Notes: CM discussed with RN, patient likely to discharge home with [facility]. CM spoke with radha Jamison/ Jason, they have orders from Dr. Mcdowell, CM will need to call Yaquelin with [facility] when discharging @ [phone]. CM to follow. D/C Plan: home with [facility] Date Signed: 11/21/2018 11:15 AM Electronically Signed By:Jayashree Rios
[2018-11-21] MEDS: LACTULOSE 20 GM/30 ML UDCUP PO PRN (14:19)
[2018-11-21] MEDS: BISACODYL 10 MG SUPP PR PRN (18:06)
[2018-11-22] MEDS: oxyCODONE IR 5 MG TAB PO PRN ×3 (04:18→15:46)
[2018-11-22] MEDS: GABAPENTIN 300 MG CAP PO SCH ×3 (06:39→21:33)
[2018-11-22] MEDS: HYDROCODONE/APAP 5/325 TAB PO PRN ×2 (06:43→21:40)
[2018-11-22] MEDS: METHOCARBAMOL 750 MG TAB PO PRN (06:58)
--- NOTE | 2018-11-22 08:07 | NEUSURGPN ---
Assessment/Plan: Assessment: 68 yo male that is s/p removal of hardware at L4/5 with new TLIF L2/ 3 and L3/4, PSF L2-L5 POD#3 Plan: - neuro stable - Increased muscle relaxers and pain medication as patine is having a difficult time with transitions - wear brace when out of bed - PT/OT - postop x-rays with hardware in good placement - continue CJ drain, will plan to remove later today - Dispo: plan for home tomorrow Discussed with Dr. Mcdowell. Subjective: low back pain increased with transitions. Denies any leg pain, numbness, tingling or weakness Objective: Awake. Alert. PERRL. EOMI Speech fluent Muscle strength full at 5/5 Cj serosanguineous Sensation intact - Physician Discussed Patient with : Jeremias Neurosurgery Physical Exam - Vitals, I&O, Labs I and O 11/21/18 11/22/18 11/23/18 05:59 05:59 05:59 Intake Total 1100 740 Output Total 1400 770 170 Balance -300 -30 -170 Intake: Oral (ml) 1100 740 Output: Urine (ml) 900 500 150 Urinal 900 500 150 CJ Drain Output (ml) 500 270 20 #1 Left Felipe Edwards 500 270 20 Other: Number of Voids Toilet 1 Urinal 1 1 Number of Stools Toilet 1 Bladder Scan Volume (ml) Toilet 524 Vital Signs Temp Pulse Resp BP Pulse Ox 37.1 C 63 18 117/59 L 93 11/22/18 07:14 11/22/18 07:14 11/22/18 07:14 11/22/18 07:14 11/22/18 07:14 Laboratory Results 11/20/18 06:07 11/20/18 06:07 ICD10 Worksheet Patient Problems: Problems Problem Status Onset Arthrodesis status Acute Lumbar radicular pain Acute Lumbar stenosis Acute BPH loc w urin obs/LUTS Acute
[2018-11-22] MEDS: ATORVASTATIN CALCIUM 40 MG TAB PO SCH (08:15)
[2018-11-22] MEDS: SENNOSIDES/DOCUSATE SODIUM TAB PO SCH ×2 (08:15→20:18)
[2018-11-22] MEDS: CYCLOBENZAPRINE 10 MG TAB PO SCH ×3 (08:16→21:33)
[2018-11-22] MEDS: FAMOTIDINE 20 MG TAB PO SCH ×2 (08:16→20:19)
[2018-11-22] MEDS: ATENOLOL 25 MG TAB PO SCH (08:19)
[2018-11-22] MEDS: LISINOPRIL 10 MG TAB PO SCH (08:19)
[2018-11-22] MEDS: ENOXAPARIN 40 MG/0.4 ML SYR SC SCH (08:20)
[2018-11-23] MEDS: HYDROCODONE/APAP 5/325 TAB PO PRN (01:43)
[2018-11-23] MEDS: oxyCODONE IR 5 MG TAB PO PRN ×3 (05:43→15:10)
[2018-11-23] MEDS: METHOCARBAMOL 750 MG TAB PO PRN ×2 (05:44→12:28)
[2018-11-23] MEDS: GABAPENTIN 300 MG CAP PO SCH ×2 (05:44→13:51)
--- NOTE | 2018-11-23 06:58 | NEUSURGPN ---
Assessment/Plan: Assessment: 68 yo male that is s/p removal of hardware at L4/5 with new TLIF L2/ 3 and L3/4, PSF L2-L5 POD#4 Plan: - neuro stable - Muscle relaxers and pain medication ordered, pain more tolerable this morning - wear brace when out of bed - PT/OT - postop x-rays with hardware in good placement - Dispo: plan for home tomorrow Discussed with Dr. Mcdowell. Subjective: low back pain with transitions. Denies any leg pain, numbness, tingling or weakness Objective: Awake. Alert. PERRL. EOMI Speech fluent Muscle strength full at 5/5 Sensation intact - Physician Discussed Patient with : Jeremias Neurosurgery Physical Exam - Vitals, I&O, Labs I and O 11/22/18 11/23/18 11/24/18 05:59 05:59 05:59 Intake Total 740 1830 Output Total 770 170 Balance -30 1660 Intake: Oral (ml) 740 1830 Output: Urine (ml) 500 150 Urinal 500 150 CJ Drain Output (ml) 270 20 #1 Left Felipe Edwards 270 20 Other: Intake Quantity Yes Sufficient Number of Voids Toilet 1 1 Urinal 1 Number of Stools Toilet 1 Vital Signs Temp Pulse Resp BP Pulse Ox 37.1 C 56 L 16 123/63 H 96 11/23/18 00:00 11/23/18 00:00 11/23/18 00:00 11/23/18 00:00 11/23/18 00:00 Laboratory Results 11/20/18 06:07 11/20/18 06:07 ICD10 Worksheet Patient Problems: Problems Problem Status Onset Arthrodesis status Acute Lumbar radicular pain Acute Lumbar stenosis Acute BPH loc w urin obs/LUTS Acute
[2018-11-23 07:40] VITALS: BP 147/71
[2018-11-23] MEDS: ENOXAPARIN 40 MG/0.4 ML SYR SC SCH (08:26)
[2018-11-23] MEDS: POLYETHYLENE GLYCOL 3350 17 GM PKT PO PRN (08:30)
[2018-11-23] MEDS: SENNOSIDES/DOCUSATE SODIUM TAB PO SCH (08:32)
[2018-11-23] MEDS: ATENOLOL 25 MG TAB PO SCH (08:33)
[2018-11-23] MEDS: LISINOPRIL 10 MG TAB PO SCH (08:33)
[2018-11-23] MEDS: ATORVASTATIN CALCIUM 40 MG TAB PO SCH (08:33)
[2018-11-23] MEDS: FAMOTIDINE 20 MG TAB PO SCH (08:33)
[2018-11-23] MEDS: tiZANidine HCL 2 MG TAB PO SCH ×2 (08:34→15:10)
[2018-11-23] MEDS: BISACODYL 10 MG SUPP PR PRN (15:19)
--- NOTE | 2018-11-23 15:32 | ASMTLACE ---
LACE Length of stay for Answers: 4-6 days current admission Acuity / Level of Answers: Yes Care: Did the patient have an inpatient admission? Comorbidities - select Answers: Coronary Artery Disease all that apply Opioid dependence / Chronic pain Other Notes: HTN; HLD # of Emergency department Answers: 0 visits in the last 6 months Score: 14 Date Signed: 11/23/2018 03:32 PM Electronically Signed By:Grecia Valencia RN
--- NOTE | 2018-11-23 15:56 | PDIAF ---
- Diagnosis Code Status: Full Code - Medication Management Discharge Medications: electronically signed and located in the Home Medication List. - Orders Services needed: Home Care, Physical Therapy, Occupational Therapy Home Care Face to Face: I certify that this patient was under my care and that I had the required [id number] encounter meeting the encounter requirements on the discharge day. My findings support the fact that the patient is homebound as defined in Home Care Face to Face Continued: CMS Chapter 7 Medicare Benefits Manual 30.1.1 , The condition of the patient is such that there exists a normal inability to leave home and consequently, leaving home would require a considerable and taxing effort. Diet Recommendation: no restrictions on diet Diet Texture: Regular Texture Diet - Follow Up Care Current Providers and Referrals: Herve Pete MD [Primary Care Provider] -
--- NOTE | 2018-11-23 15:57 | ASMTDCNOTE ---
Case Management Discharge Discharge Order Complete? Answers: Yes Patient to Obtain Answers: Independently Medications Transportation Arranged Answers: Family/Friends Family Notified Answers: Yes Discharge Comments Notes: Patient discharged. No interagency orders, call to Mariposa Livingston as PT recommending [facility] PT. Patient to use [facility]. Address verified. also has number to call. Awaiting interagency orders. Date Signed: 11/23/2018 03:56 PM Electronically Signed By:Grecia Valencia RN
--- NOTE | 2018-11-24 12:58 | ASDISCHSUM ---
Discharge Information Plan Status:Home with Home Health Medically Cleared to Leave:11/23/2018 Discharge Date:11/23/2018 04:18 PM D/C Disposition:Home Health Service ADT D/C Disposition:Home, Routine, Self-Care Projected Discharge Date:11/23/2018 11:00 AM Transportation at D/C: Discharge Delay Reason: Follow-Up Date:11/23/2018 11:00 AM Discharge Slot: Final Diagnosis: Placement Information Referral Type:*Home Health Care Services Referral ID:[id number] Provider Name:[facility] ([facility]) Address 1:[address] [address] Address 2: City:[place] Selection Factors: State:[place] Patient Contact Information Contact Name:HIWOTJose Antonio Relationship: Address:[address] City:[place] Phone: State/Zip Code:[place] [address] Email: Financial Information Financial Class:Medicare Primary Plan Desc:MEDICARE INPATIENT Primary Plan Number:[id number] Secondary Plan Desc:DANICA/MDR SUPPLEMENT Secondary Plan Number:[id number] Assessment Information LACE LACE Length of stay for Answers: 4-6 days current admission Acuity / Level of Answers: Yes Care: Did the patient have an inpatient admission? Comorbidities - select Answers: Coronary Artery Disease all that apply Opioid dependence / Chronic pain Other Notes: HTN; HLD # of Emergency department Answers: 0 visits in the last 6 months Score: 14 Date Signed: 11/23/2018 03:32 PM Electronically Signed By:Grecia Valencia RN [facility] CM Progress Note CM Note CM Note Notes: Pt had planned back surgery, resides with spouse. PT rec HHC, OT rec home/HHC Pt was pre-arranged by with [facility]. Pt meets with Yaquelin from [facility] today and decides he does want HC. HC orders not required at d/c since [facility] has protocol with MD. D/c plan of care: Home with [facility] Date Signed: 11/20/2018 02:11 PM Electronically Signed By:MAYNOR Badillo [facility] Progress Note CM Note CM Note Notes: CM discussed with RN, patient likely to discharge home with [facility]. CM spoke with radha Jamison/ Jason, they have orders from Dr. Mcdowell, CM will need to call Yaquelin with [facility] when discharging @ [phone]. CM to follow. D/C Plan: home with [facility] Date Signed: 11/21/2018 11:15 AM Electronically Signed By:Jayashree Rios Case Management Discharge Plan Note Case Management Discharge Discharge Order Complete? Answers: Yes Patient to Obtain Answers: Independently Medications Transportation Arranged Answers: Family/Friends Family Notified Answers: Yes Discharge Comments Notes: Patient discharged. No interagency orders, call to Mariposa Livingston as PT recommending [facility] PT. Patient to use [facility]. Address verified. also has number to call. Awaiting interagency orders. Date Signed: 11/23/2018 03:56 PM Electronically Signed By:Grecia Valencia RN Intervention Information Intervention Type:*IM-Signed Date of Service:11/21/2018 11:44 AM Patient Type:Inpatient Staff Member:Cecilia Peters Hours: Discipline: Severity: Comment:
== END 2018-11-23 16:18 | disposition home health service (06) | DRG 455 ==
LOC: F3N 07:48
PROVIDERS: ADMIT Neurological Surgery; ATTEND Neurological Surgery
PROC: 0SP30AZ Removal of Interbody Fusion Device from Lumbosacral Joint, Open Approach (ICD-10-PCS; principal; 2018-11-19 10:15)
PROC: 00NY0ZZ Release Lumbar Spinal Cord, Open Approach (ICD-10-PCS; principal; 2018-11-19 10:15)
PROC: 0SG10AJ Fusion of 2 or more Lumbar Vertebral Joints with Interbody Fusion Device, Posterior Approach, Anterior Column, Open Approach (ICD-10-PCS; principal; 2018-11-19 10:15)
PROC: 0SG1071 Fusion of 2 or more Lumbar Vertebral Joints with Autologous Tissue Substitute, Posterior Approach, Posterior Column, Open Approach (ICD-10-PCS; principal; 2018-11-19 10:15)
PROC: 0ST20ZZ Resection of Lumbar Vertebral Disc, Open Approach (ICD-10-PCS; principal; 2018-11-19 10:15)
PROC: 4A1004G Monitoring of Central Nervous Electrical Activity, Intraoperative, Open Approach (ICD-10-PCS; principal; 2018-11-19 10:15)
PROC: 01NB0ZZ Release Lumbar Nerve, Open Approach (ICD-10-PCS; principal; 2018-11-19 10:15)
DX: M48.062 Spinal stenosis, lumbar region with neurogenic claudication (principal); Z98.1 Arthrodesis status; M51.16 Intervertebral disc disorders with radiculopathy, lumbar region; M51.36 Other intervertebral disc degeneration, lumbar region; I10 Essential (primary) hypertension; E78.5 Hyperlipidemia, unspecified; G47.30 Sleep apnea, unspecified; R73.03 Prediabetes; Z23 Encounter for immunization
CPT/HCPCS: 97116-GP; 97162-GP; 97166-GO; 97530-GP; 97535-GO; C1713; C1751; G0009; J0690; J1100; J1170; J1650; J2001; J2250; J2270; J2405; J2704; J3010

== ENCOUNTER → 2018-11-19 | Day surgery (SDC) | payer OTHER, MEDICARE | END | disposition home or self-care (01) | LOC: FIMAGING 07:43 | PROVIDERS: ATTEND Radiology Diagnostic Radiology | PROC: 02HV33Z Insertion of Infusion Device into Superior Vena Cava, Percutaneous Approach (ICD-10-PCS; principal; 2018-11-19) | DX: Z45.2 Encounter for adjustment and management of vascular access device (principal) | CPT/HCPCS: 36573; 77001; C1751 ==

== ENCOUNTER → 2019-01-06 | Outpatient (CLI) | payer OTHER, MEDICARE | LOC: CIMAGING 10:13 | PROVIDERS: ATTEND Neurological Surgery | DX: Z47.89 Encounter for other orthopedic aftercare (principal); Z98.1 Arthrodesis status | CPT/HCPCS: 72100-PO ==